=== PATIENT | male | born 1960 | race Two or more races ===

== ENCOUNTER 2022-11-27 13:10 | Emergency (ER) | payer MEDICAID ==
[~2022-11-27] VITALS: Ht 177.8 cm; Wt 80.0 kg
[2022-11-27 13:19] VITALS: BP 115/81; PULSE 101; RESP 16; TEMP 98.5; O2SAT 99
[2022-11-27] MEDS ORDERED: ONDANSETRON 4MG ODT PO STA (13:22)
[2022-11-27] MEDS ORDERED: KETOROLAC 60MG/2ML VIAL IM STA (13:22)
== END 2022-11-27 13:27 | disposition home or self-care (01) ==
LOC: ER 13:10
DX: R11.10 Vomiting, unspecified (principal); R05.9 Cough, unspecified; M79.10 Myalgia, unspecified site
CPT/HCPCS: 99283; Q0162